=== PATIENT | male | born 1930 | race Caucasian/White ===

== ENCOUNTER 2022-08-14 05:51 | Day surgery (SDC) | payer OTHER ==
[2022-08-12 13:25] LABS: BASOPHILS % (AUTO) 0.8 % (0.0-5.0); EOSINOPHILS % (AUTO) 5.8 % (0.0-8.0); HEMATOCRIT 38.3 % (42-54); MEAN CORPUSCULAR HEMOGLOBIN 32.8 pg (27.0-33.0); MEAN CORPUSCULAR HGB CONC 33.9 g/dL (32.0-36.0); MEAN CORPUSCULAR VOLUME 96.7 fL (79-99); MONOCYTES % (AUTO) 8.5 % (3.0-13.0); NEUTROPHILS % (AUTO) 57.7 % (40.0-77.0); PLATELET COUNT (AUTO) 188 K/uL (130-400); RED BLOOD CELL COUNT(AUTO) 3.96 MIL/uL (4.50-6.20); RED CELL DISTRIBUTION WIDTH 12.4 % (11.0-15.5); WHITE BLOOD COUNT (AUTO) 5.2 K/uL (4.8-10.8)
[2022-08-12 13:33] LABS: CREATININE 1.2 mg/dL (0.5-1.5); POTASSIUM 4.4 mmol/L (3.5-5.1)
[2022-08-12 13:35] LABS: PROTHROMBIN TIME 10.9 SEC (9.6-11.6)
[2022-08-12 13:37] LABS: PARTIAL THROMBOPLASTIN TIME 29.2 SEC (26.3-35.5)
[2022-08-13 09:08] VITALS: BP 142/92
[2022-08-14] VITALS (14 sets, daily range): BP systolic 126–149; BP diastolic 57–84
[~2022-08-14 05:51] MED LIST: OMEP40CA21 PO
[2022-08-14] MEDS ORDERED: LACTATED RINGERS 1000ML 1,000 ML IV ONE (06:34)
[2022-08-14] MEDS: CEFAZOLIN SODIUM 2 GM VIAL ONE ×2 (06:52→07:55)
[2022-08-14] MEDS ORDERED: BACITRACIN 28.4 GM OINT TP ONE (06:54)
[2022-08-14] MEDS ORDERED: LIDOCAINE 1%-EPI 1:100,000 20 ML VIAL IJ SCH (07:00)
[2022-08-14] MEDS ORDERED: LIDOCAINE PF 100MG/5ML (2%) SYRINGE 5ML ONE (07:14)
[2022-08-14] MEDS ORDERED: PROPOFOL 10 MG/ML 20ML VIAL IV ONE (07:14)
[2022-08-14] MEDS ORDERED: FENTANYL CITRATE PF 50 MCG/1 ML 2ML VIAL ONE (07:14)
[2022-08-14] MEDS ORDERED: ROCURONIUM 10MG/1ML SYR 10 MG/ML ML ONE (07:14)
[2022-08-14] MEDS ORDERED: DEXAMETHASONE SOD PHOSPHATE 4 MG/ML 1ML VIAL ONE (08:14)
[2022-08-14] MEDS ORDERED: ONDANSETRON 4MG INJ ONE (08:16)
[2022-08-14] MEDS ORDERED: PHENYLEPHRINE HCL 10 MG/ML 1ML VIAL IV ONE (08:29)
[2022-08-14] MEDS ORDERED: EPHEDRINE SULFATE 50 MG/ML AMPULE ONE (08:56)
[2022-08-14] MEDS ORDERED: GLYCOPYRROLATE 1 MG/5 ML SYRINGE ONE (08:58)
[2022-08-14] MEDS ORDERED: NEOSTIGMINE 5MG/5ML SYR IV ONE (08:59)
== END 2022-08-14 10:45 | disposition home or self-care (01) ==
LOC: DAH 05:51
PROVIDERS: ATTEND Otolaryngology Plastic Surgery within the Head & Neck
DX: C44.229 Squamous cell carcinoma of skin of left ear and external auricular canal (principal); Z20.822 Contact with and (suspected) exposure to COVID-19; Z79.01 Long term (current) use of anticoagulants; Z88.6 Allergy status to analgesic agent
CPT/HCPCS: 80048; 85025; 85610; 85730; 87426; 36415; 71045; 93005; 69110; 88305; 88342; 88341; J1100; A4663; A4606; J7120; J3010; J3490 ×2; J2710; J2001; J2704; J2405; J2370; J0690; A6223; A4649; A4215; A4223; A4222; A4221; A4600